=== PATIENT | female | born 1955 | race American Indian/Alaskan Native ===

== ENCOUNTER 2016-11-15 07:07 | Outpatient (CLI) | payer MEDICAID ==
--- NOTE | 2016-11-15 10:27 | Mammography Report ---
BILATERAL DIGITAL SCREENING MAMMOGRAM with CAD: 11/15/16 07:07:00 CLINICAL: Routine screening. COMPARISON:11/14/15 FINDINGS: The breasts are almost entirely fatty. No mass, architectural distortion or suspicious calcifications. IMPRESSION: No mammographic evidence of malignancy. BI-RADS CATEGORY: 1 - - Negative RECOMMENDATION: Routine mammographic screening in one year. COMMENT: Patient follow-up letters are generated by our [employer] application.
== END 2016-11-15 07:08 | disposition home or self-care (01) ==
LOC: MAMMO 07:07
PROVIDERS: ATTEND Internal Medicine
DX: Z12.31 Encounter for screening mammogram for malignant neoplasm of breast (principal)
CPT/HCPCS: 77067; G0202

== ENCOUNTER 2019-01-22 08:15 | Outpatient (CLI) | payer MEDICAID ==
--- NOTE | 2019-01-26 12:13 | Mammography Report ---
DIGITAL SCREENING MAMMOGRAM WITH CAD, 01/22/2019 INDICATION: Routine screening mammography. TECHNIQUE: Digital bilateral 2D mammography was obtained in the craniocaudal and mediolateral obliq ue projections. This examination was interpreted with the benefit of Computer-Aided Detection analysi s. COMPARISON: 11/15/2016 FINDINGS: Breast Density: There are scattered areas of fibroglandular density. A right outer focal asymmetry requires additional imaging. No architectural distortion or suspicious calcifications. There is no evidence of dominant mass, suspicious calcifications or architectural dis tortion in the left breast. IMPRESSION: A right outer parenchymal asymmetry requires additional imaging. Recommend recall for rig ht MLO and CC spot magnification views and right breast ultrasound if needed. Follow up recommendation: Special View: Mag Category 0: Incomplete. Needs additional imaging evaluation and/or prior mammograms for comparison. A "normal" or negative report should not discourage follow up or biopsy of a clinically significant f inding. A written summary of these findings will be mailed to the patient. The patient will be entered into a mammography reporting system which will generate a reminder letter for the patient's next appointmen t at the appropriate interval. The [employer] recommends yearly mammograms starting at age 40 and continuing as l mercy as a woman is in good health. Breast MRI is recommended for women with an approximate 20-25% or greater lifetime risk of breast cancer, including women with a strong family history of breast or ova ryanne cancer or who have been treated for Hodgkin's disease. Signer Name: Antonio Osorio MD Signed: 01/26/2019 12:08 PM Workstation Name: [id number]
== END 2019-01-22 08:16 | disposition home or self-care (01) ==
LOC: MAMMO 08:15
PROVIDERS: ATTEND Internal Medicine
DX: Z12.31 Encounter for screening mammogram for malignant neoplasm of breast (principal)
CPT/HCPCS: 77067

== ENCOUNTER 2019-02-05 08:19 | Outpatient (CLI) | payer MEDICAID ==
--- NOTE | 2019-02-05 09:55 | Ultrasound Report ---
RIGHT DIGITAL DIAGNOSTIC MAMMOGRAM -- 02/05/2019 RIGHT LIMITED BREAST ULTRASOUND INDICATION: Right breast spiculated nodule TECHNIQUE: Digital right mammographic imaging was performed. Spot compression views were obtained. L imited ultrasound was performed. COMPARISON: Screening mammogram dated 01/22/2019 FINDINGS: Breast Density: There are scattered areas of fibroglandular density. In the right breast, posterior depth 7-8:00 position, a 1.2 cm spiculated nodule persists on addition al imaging. Ultrasound Findings: Targeted sonographic evaluation was performed on the area of interest. In the le ft breast, 7:00 position 12 cm from nipple, an irregular shadowing mass with associated vascularity c orrelates with the spiculated nodule seen on mammography. It measures 1.3 cm. IMPRESSION: Spiculated mass right breast 7 8:00 position posterior depth, solid and vascular on ultra sound. BI-RADS Category 5: Highly Suggestive of Malignancy. Surgical consultation and biopsy is rec ommended. A "normal" or negative report should not discourage follow up or biopsy of a clinically significant f inding. A written summary of these findings will be mailed to the patient. The patient will be entered into a mammography reporting system which will generate a reminder letter for the patient's next appointmen t at the appropriate interval. According to the [employer], yearly mammograms are recommended starting at age 40 and continuing as long as a woman is in good health. Breast MRI is recommended for women with an marcel roximately 20-25% or greater lifetime risk of breast cancer, including women with a strong family his tory of breast or ovarian cancer and women who have been treated for Hodgkin's disease. Signer Name: Jessie Claudio MD Signed: 02/05/2019 9:51 AM Workstation Name: [employer]
== END 2019-02-05 08:20 | disposition home or self-care (01) ==
LOC: MAMMO 08:19
PROVIDERS: ATTEND Internal Medicine
DX: N63.13 Unspecified lump in the right breast, lower outer quadrant (principal)

== ENCOUNTER 2019-02-12 16:09 | Outpatient (CLI) | payer MEDICAID, OTHER | END 2019-02-12 16:10 | disposition home or self-care (01) | LOC: LABHHL 16:09 | PROVIDERS: ATTEND Surgery | DX: N63.11 Unspecified lump in the right breast, upper outer quadrant (principal) | CPT/HCPCS: 88305; 88341; 88342 ==

== ENCOUNTER 2019-02-25 09:05 | Outpatient (CLI) | payer MEDICAID ==
--- NOTE | 2019-03-01 12:02 | Magnetic Resonance Report ---
BILATERAL BREAST MR WITHOUT AND WITH GADOLINIUM INDICATION: Newly diagnosed right breast cancer. COMPARISONS: 02/05/2019 mammogram and ultrasound TECHNIQUE: Axial 1.0 mm T1 without, axial high-resolution 2.0 mm T2 and axial 1.0 mm dynamic vibrant high-resolution postcontrast T1 fat saturation sequences on a 1.5 Pao magnet. The examination was p erformed with an 8-channel dedicated Sentinelle breast coil. Post-processing with CAD and subtraction was performed on an [employer] workstation. 19.0 cc of MultiHance was injected without incident for the c ontrast portion of the exam. Consent was obtained prior to the administration of the contrast. FINDINGS: RIGHT BREAST: Moderate background parenchymal enhancement. The known cancer is an irregular enhancing mass in the lower outer quadrant 11 cm from the nipple measuring 2.6 x 1.7 x 1.4 cm. It demonstrates heterogeneous enhancement with mixed kinetics, 247% peak enhancement, 69% type I persistent, 30% typ e II plateau and 1% type III washout waveforms. No other mass or suspicious enhancement of the right breast. A 2.4 cm level I right axillary lymph no de with the maximum cortical thickness of 5 mm. No other suspicious lymph nodes. LEFT BREAST: Moderate background parenchymal enhancement. No mass or suspicious enhancement. A lymph node in the left axillary tail measures 3.9 x 0.8 cm. The cortex is irregular and measures 7 mm maxim um. IMPRESSION: 1. Known right breast cancer of the lower outer quadrant and no other suspicious lesion of the right breast. 2. A mildly suspicious right axillary lymph node with mild focal cortical thickening. 3. Negative left breast with a probably benign left axillary tail lymph node. BI-RADS Category 6: Known Cancer Signer Name: Antonio Osorio MD Signed: 03/01/2019 11:58 AM Workstation Name: [id number]
== END 2019-02-25 09:06 | disposition home or self-care (01) ==
LOC: SPVIMAG 09:05
PROVIDERS: ATTEND Surgery
DX: D05.11 Intraductal carcinoma in situ of right breast (principal)
CPT/HCPCS: A9577; C8908; 77049

== ENCOUNTER 2019-03-02 12:40 | Outpatient (CLI) | payer MEDICAID ==
--- NOTE | 2019-03-02 14:31 | Ultrasound Report ---
ULTRASOUND-GUIDED NEEDLE CORE BIOPSY RIGHT AXILLARY LYMPH NODE WITH CLIP PLACEMENT CLINICAL: Newly diagnosed right breast cancer and a suspicious lymph node on MRI. FINDINGS: The procedure was explained to the patient and informed consent was obtained. Ultrasound demonstrated the previously identified lymph node with focal cortical thickening. The lymp h node is actually in the axillary tail at the inferior aspect of the axilla. I marked the skin with a felt tip marker and a timeout was called. The skin was prepped with Chloro-P rep and anesthetized with 1% lidocaine. Needle core biopsy was performed through small dermatotomy using ultrasound guidance, 2% lidocaine wi th epinephrine for deep anesthesia and a 18-gauge Achieve biopsy device. 3 cores were obtained and pl aced in formalin. A localizer clip was deployed within the node. The patient tolerated the procedure well and there were no apparent complications. Hemostasis was ach ieved with minimal effort and a sterile dressing was applied. IMPRESSION: Uncomplicated ultrasound guided needle core biopsy with clip placement right axillary lym ph node . Signer Name: Antonio Osorio MD Signed: 03/02/2019 2:26 PM Workstation Name: [id number]
== END 2019-03-02 12:41 | disposition home or self-care (01) ==
LOC: SPVWC 12:40
PROVIDERS: ATTEND Surgery
DX: I89.8 Other specified noninfective disorders of lymphatic vessels and lymph nodes (principal); D05.11 Intraductal carcinoma in situ of right breast
CPT/HCPCS: 38505; 76942; 88305; 88342

== ENCOUNTER 2019-03-22 12:36 | Outpatient (CLI) | payer MEDICAID ==
--- NOTE | 2019-03-22 14:15 | Ultrasound Report ---
ULTRASOUND-GUIDED NEEDLE CORE BIOPSY LEFT AXILLARY LYMPH NODE WITH CLIP PLACEMENT CLINICAL: Right breast cancer and an abnormal left axillary lymph node by MRI. FINDINGS: The procedure was explained to the patient and informed consent was obtained. Ultrasound demonstrated the previously identified lymph node.. I marked the skin with a felt tip marker and a timeout was called. The skin was prepped with Chloro-P rep and anesthetized with 1% lidocaine. Needle core biopsy was performed through small dermatotomy using ultrasound guidance, 2% lidocaine wi th epinephrine for deep anesthesia and a 18-gauge Achieve biopsy device. 3 cores were obtained and pl aced in formalin. A clip was deployed within the lymph node. The patient tolerated the procedure well and there were no apparent complications. Hemostasis was ach ieved with minimal effort and a sterile dressing was applied. IMPRESSION: Uncomplicated ultrasound guided needle core biopsy with clip placement left axillary lymp h node. Signer Name: Antonio Osorio MD Signed: 03/22/2019 2:11 PM Workstation Name: [id number]
== END 2019-03-22 12:37 | disposition home or self-care (01) ==
LOC: SPVWC 12:36
PROVIDERS: ATTEND Surgery
DX: I89.8 Other specified noninfective disorders of lymphatic vessels and lymph nodes (principal); C50.911 Malignant neoplasm of unspecified site of right female breast
CPT/HCPCS: 38505; 76942; 88305

== ENCOUNTER 2019-08-20 11:44 | Outpatient (CLI) | payer MEDICAID | END 2019-08-20 11:45 | disposition home or self-care (01) | LOC: LABHHL 11:44 | PROVIDERS: ATTEND Surgery | DX: N60.09 Solitary cyst of unspecified breast (principal) | CPT/HCPCS: 88112 ==

== ENCOUNTER 2019-08-30 10:00 | Outpatient (CLI) | payer MEDICAID ==
[2019-08-30] MEDS ORDERED: LIDOCAINE (4%) 40 MG/ML TOPICAL SOLN 50 ML BOTTLE TP ONE (15:32)
[2019-08-30] MEDS ORDERED: SODIUM CHLORIDE IRRI 500 ML 500 ML IR ONE (15:58)
== END 2019-08-30 10:01 | disposition home or self-care (01) ==
LOC: WOUND 10:00
PROVIDERS: ATTEND Surgery
DX: S21.001A Unspecified open wound of right breast, initial encounter (principal); L98.492 Non-pressure chronic ulcer of skin of other sites with fat layer exposed; C50.911 Malignant neoplasm of unspecified site of right female breast; I10 Essential (primary) hypertension; M19.90 Unspecified osteoarthritis, unspecified site; Z90.710 Acquired absence of both cervix and uterus; Z90.49 Acquired absence of other specified parts of digestive tract; W88.8XXA Exposure to other ionizing radiation, initial encounter; Y93.89 Activity, other specified; Y92.89 Other specified places as the place of occurrence of the external cause; Y99.8 Other external cause status

== ENCOUNTER 2019-09-20 14:42 | Outpatient (CLI) | payer MEDICAID ==
[2019-09-20] MEDS ORDERED: LIDOCAINE (4%) 40 MG/ML TOPICAL SOLN 50 ML BOTTLE TP ONE (14:51)
== END 2019-09-20 14:43 | disposition home or self-care (01) ==
LOC: WOUND 14:42
PROVIDERS: ATTEND Surgery
DX: S21.001D Unspecified open wound of right breast, subsequent encounter (principal); L98.492 Non-pressure chronic ulcer of skin of other sites with fat layer exposed; C50.911 Malignant neoplasm of unspecified site of right female breast; I10 Essential (primary) hypertension; M19.90 Unspecified osteoarthritis, unspecified site; Z90.710 Acquired absence of both cervix and uterus; Z90.49 Acquired absence of other specified parts of digestive tract; W88.8XXD Exposure to other ionizing radiation, subsequent encounter

== ENCOUNTER 2019-11-01 12:56 | Outpatient (CLI) | payer MEDICAID ==
[2019-11-01] MEDS ORDERED: LIDOCAINE (4%) 40 MG/ML TOPICAL SOLN 50 ML BOTTLE TP ONE (13:01)
== END 2019-11-01 12:57 | disposition home or self-care (01) ==
LOC: WOUND 12:56
PROVIDERS: ATTEND Surgery
DX: L59.8 Other specified disorders of the skin and subcutaneous tissue related to radiation (principal); L98.492 Non-pressure chronic ulcer of skin of other sites with fat layer exposed; C50.911 Malignant neoplasm of unspecified site of right female breast; I10 Essential (primary) hypertension; M19.90 Unspecified osteoarthritis, unspecified site; Z90.710 Acquired absence of both cervix and uterus; Z90.49 Acquired absence of other specified parts of digestive tract; Y84.2 Radiological procedure and radiotherapy as the cause of abnormal reaction of the patient, or of later complication, without mention of misadventure at the time of the procedure

== ENCOUNTER 2019-11-23 14:19 | Outpatient (CLI) | payer MEDICAID ==
--- NOTE | 2019-11-23 15:12 | Mammography Report ---
BILATERAL DIAGNOSTIC MAMMOGRAM INDICATION: Status post right breast lumpectomy, patient due for annual bilateral mammogram.. COMPARISON: 04/09/2019, 02/12/2019, 02/05/2019, 01/22/2019, 11/15/2016. FINDINGS: Bilateral CC and MLO views were obtained. Breasts demonstrate scattered fibroglandular breast density. Area of distortion within the right lower outer posterior breast likely reflects site of interval lum pectomy. There is skin thickening and mild trabecular thickening within the right breast which is lik deborah posttreatment related. This exam will serve as a new baseline appearance of the right breast. No new or suspicious finding within either breast. No evidence of malignancy. IMPRESSION: No evidence of malignancy. A routine screening mammogram in one year is recommended. BI-RADS Category 2: Benign. Recommend routine screening mammography in one year A "normal" or negative report should not discourage follow up or biopsy of a clinically significant f inding. A written summary of these findings will be mailed to the patient. FURTHER INFORMATION: According to the [employer], yearly mammograms are recommend ed starting at age 40 and continuing as long as a woman is in good health. Breast MRI is recommended for women with an approximately 20-25% or greater lifetime risk of breast cancer, including women wi th a strong family history of breast or ovarian cancer and women who have been treated for Hodgkin's disease. Signer Name: Phuc Lopez MD Signed: 11/23/2019 3:08 PM Workstation Name: [id number]
== END 2019-11-23 14:20 | disposition home or self-care (01) ==
LOC: SPVWC 14:19
PROVIDERS: ATTEND Surgery
DX: C50.911 Malignant neoplasm of unspecified site of right female breast (principal)
CPT/HCPCS: 77066

== ENCOUNTER 2020-06-08 10:15 | Outpatient (CLI) | payer MEDICAID ==
--- NOTE | 2020-06-08 11:17 | Mammography Report ---
DIGITAL DIAGNOSTIC MAMMOGRAM WITH CAD , 06/08/2020 CLINICAL INFORMATION / INDICATION: The patient has a personal history of right breast cancer treated with lumpectomy and radiation. This is a short-term follow-up evaluation. The patient reports no new breast symptoms. TECHNIQUE: Digital right mammographic imaging was performed. This examination was interpreted with the benefit of Computer-aided Detection analysis. COMPARISON: 11/23/2019, 02/12/2019 FINDINGS: Breast Density: There are scattered areas of fibroglandular density. No dominant mass, suspicious calcifications or architectural distortion in the right breast. Stable postsurgical changes are noted in the right breast. IMPRESSION: No mammographic evidence of malignancy. Follow up recommendation: Routine yearly BI-RADS Category 2: Benign. A "normal" or negative report should not discourage follow up or biopsy of a clinically significant f inding. A written summary of these findings will be mailed to the patient. The patient will be entered into a mammography reporting system which will generate a reminder letter for the patient's next appointmen t at the appropriate interval. According to the [employer], yearly mammograms are recommended starting at age 40 and continuing as long as a woman is in good health. Breast MRI is recommended for women with an marcel roximately 20-25% or greater lifetime risk of breast cancer, including women with a strong family his tory of breast or ovarian cancer and women who have been treated for Hodgkin's disease. Signer Name: Keara Guillen MD Signed: 06/08/2020 11:12 AM Workstation Name: [id number]
== END 2020-06-08 10:16 | disposition home or self-care (01) ==
LOC: SPVWC 10:15
PROVIDERS: ATTEND Surgery
DX: R92.8 Other abnormal and inconclusive findings on diagnostic imaging of breast (principal); Z85.3 Personal history of malignant neoplasm of breast

== ENCOUNTER 2020-06-15 08:55 | Outpatient (CLI) | payer MEDICAID ==
--- NOTE | 2020-06-15 14:33 | Fluoroscopy Report ---
UPPER GI HISTORY: GASTROESOPHAGEAL REFLUX DISEASE. TECHNIQUE: Single and double contrast barium technique utilized to evaluate the esophagus, stomach, and duodenal C-loop. FINDINGS: To begin the exam, swallowing was evaluated in the lateral position under direct fluorosco py. Swallowing was normal. The esophagus is normal caliber and mucosal pattern throughout. Normal motility. A small to medium hi atal hernia was seen throughout this exam with occasional episodes of reflux to the proximal esophagu s. The gastric cavity, duodenal bulb and duodenal sweep are unremarkable. IMPRESSION: Small to medium hiatal hernia with evidence for gastroesophageal reflux. Fluoroscopic time: 1.6 minutes Number of fluoroscopic images: 21 Signer Name: Jann Friend Jr, MD Signed: 06/15/2020 2:28 PM Workstation Name: [id number]
== END 2020-06-15 08:56 | disposition home or self-care (01) ==
LOC: FLUORO 08:55
PROVIDERS: ATTEND Surgery
DX: K21.9 Gastro-esophageal reflux disease without esophagitis (principal); K44.9 Diaphragmatic hernia without obstruction or gangrene
CPT/HCPCS: 74246

== ENCOUNTER 2020-06-22 12:39 | Outpatient (CLI) | payer MEDICAID | END 2020-06-22 12:40 | disposition home or self-care (01) | LOC: SLR 12:39 | PROVIDERS: ATTEND Surgery | DX: G47.30 Sleep apnea, unspecified (principal) | CPT/HCPCS: 95810 ==

== ENCOUNTER 2020-07-31 11:00 | Outpatient (CLI) | payer MEDICAID | END 2020-07-31 11:01 | disposition home or self-care (01) | LOC: SLR 11:00 | PROVIDERS: ATTEND Surgery | DX: G47.33 Obstructive sleep apnea (adult) (pediatric) (principal); R40.0 Somnolence; E66.9 Obesity, unspecified | CPT/HCPCS: 95811 ==

== ENCOUNTER 2020-10-04 09:10 | Outpatient (CLI) | payer MEDICAID | END 2020-10-04 09:11 | disposition home or self-care (01) | LOC: PF 09:10 | PROVIDERS: ATTEND Surgery | DX: Z01.818 Encounter for other preprocedural examination (principal); E66.01 Morbid (severe) obesity due to excess calories | CPT/HCPCS: 94010 ==

== ENCOUNTER 2020-10-26 06:03 | Inpatient (IN) | payer MEDICAID ==
[2020-10-23 11:27] LABS: Hematocrit 38.1 % (30.3-42.9); Hemoglobin 12.7 gm/dl (10.1-14.3); Mean Corpuscular HGB Conc 33 % (30-34); Mean Corpuscular Volume 86 fl (79-97); Platelet Count 188 K/mm3 (140-440); Red Blood Count 4.42 M/mm3 (3.65-5.03); Red Cell Distribution Width 13.7 % (13.2-15.2)
[2020-10-23 11:41] LABS: BUN/Creatinine Ratio 18; Blood Urea Nitrogen 16 mg/dL (7-17); Calcium 9.3 mg/dL (8.4-10.2); Hemolysis Index 0
--- NOTE | 2020-10-24 11:56 | Anesthesia Consultation ---
Anesthesia Consult and Med Hx Date of service: 10/26/20 - Airway Anesthetic Teeth Evaluation: Good (Missing) ROM Head & Neck: Adequate Mental/Hyoid Distance: Adequate Mallampati Class: Class II Intubation Access Assessment: Good - Pre-Operative Health Status ASA Pre-Surgery Classification: ASA3 Proposed Anesthetic Plan: Spinal (GA if needed) - Pre-Anesthesia Comment Pre-Anesthesia Comments: Prolonged sedation after breast surgery and needed CPAP in PACU - Pulmonary Hx Smoking: No Hx Asthma: No Hx Sleep Apnea: Yes (DX SLEEP APNEA WITH CPAP USE) - Cardiovascular System Hx Hypertension: Yes (X 42 YRS) - Central Nervous System Hx Seizures: No Hx Back Pain: No (Arthritis) Hx Psychiatric Problems: No - Gastrointestinal Hx Gastroesophageal Reflux Disease: Yes - Endocrine Hx Thyroid Disease: No - Hematic Hx Anemia: No - Other Systems Hx Cancer: Yes (Right breast) Hx Obesity: Yes - Additional Comments Anesthesia Medical History Comments: Pt is seeing Dr. Day for bariatric surgery. PFTs ok and pt reports negative NST
[~2020-10-26 06:03] MED LIST: ACETAMINOPHEN 500 MG TAB PO NR; CELECOXIB 200 MG CAP PO NR; GABAPENTIN 300 MG CAP PO NR; LACTATED RINGERS 1,000 ML IV SCH; MAGNESIUM OXIDE 400 MG TAB PO NR; MIDAZOLAM 2 MG/2 ML INJ IV NR; ceFAZolin/STERILE WATER 2 GM/20 ML SYRINGE IV NR
--- NOTE | 2020-10-26 06:46 | Anesthesia Day of Surgery ---
Anesthesia Day of Surgery - Day of Surgery Patient Examined: Yes Patient H&P Reviewed: Yes Patient is NPO: Yes Beta Blockers: Yes
[2020-10-26] MEDS ORDERED: HYDROmorphone 1 MG/1 ML INJ IV PRN ×2 (07:15)
[2020-10-26] MEDS ORDERED: ONDANSETRON 4 MG/2 ML INJ IV PRN ×3 (07:15→11:42)
[2020-10-26] MEDS ORDERED: CITRIC ACID-SOD CITRATE 500 ML IV ONE (07:57)
[2020-10-26] MEDS ORDERED: NEOMY 40 MG/POLYMYXIN B 200,000 UNITS/ML (GU) AMPULE IR ONE ×2 (07:58→09:36)
[2020-10-26] MEDS ORDERED: propofoL 200 MG/20 ML VIAL IV ONE ×3 (07:59→09:35)
[2020-10-26] MEDS ORDERED: LIDOCAINE MPF (2%) 20 MG/1 ML VIAL 5 ML ONE (08:01)
[2020-10-26] MEDS ORDERED: KETAMINE/STERILE WATER 50 MG/ML SYRINGE ONE (08:50)
[2020-10-26] MEDS ORDERED: MIDAZOLAM 2 MG/2 ML INJ ONE (08:51)
[2020-10-26] MEDS ORDERED: SODIUM CHLORIDE P/F VIAL 10 ML 10 ML ONE (08:59)
[2020-10-26] MEDS ORDERED: TRANEXAMIC ACID 1,000 MG/10 ML ONE (09:12)
[2020-10-26] MEDS ORDERED: SODIUM CHLORIDE 0.9% 100 ML ONE ×2 (09:13)
[2020-10-26] MEDS ORDERED: KETOROLAC 30 MG/1 ML INJ ONE (09:21)
[2020-10-26] MEDS ORDERED: MORPHINE 10 MG/1 ML INJ ONE (09:21)
[2020-10-26] MEDS ORDERED: BUPIVACAINE/PF (0.5%) 5 MG/1 ML 10 ML VIAL INFILTRATI ONE ×2 (09:21→09:32)
[2020-10-26] MEDS ORDERED: SODIUM CHLORIDE 0.9% 50 ML ONE (09:22)
[2020-10-26] MEDS ORDERED: TRANEXAMIC ACID 1,000 MG/10 ML IV ONE (09:31)
[2020-10-26] MEDS ORDERED: KETOROLAC 30 MG/1 ML INJ IV ONE (09:32)
[2020-10-26] MEDS ORDERED: MORPHINE 10 MG/1 ML INJ IM ONE (09:33)
[2020-10-26] MEDS ORDERED: SODIUM CHLORIDE 0.9% 50 ML IVPB IV ONE (09:33)
[2020-10-26] MEDS ORDERED: WATER FOR IRRIG STERILE 1,500 ML BOTTLE IR ONE (09:34)
[2020-10-26] MEDS ORDERED: SODIUM CHLORIDE 0.9% 100 ML IVPB IV ONE (09:34)
[2020-10-26] MEDS ORDERED: SODIUM CHLORIDE 0.9% IRR 1,500 ML BOTTLE IR ONE (09:34)
[2020-10-26] MEDS ORDERED: SODIUM CHLORIDE 0.9% IRRIG SOLN 2000 ML IR ONE (09:36)
--- NOTE | 2020-10-26 10:38 | Procedure Note ---
Date of procedure: 10/26/20 Pre-op diagnosis: Severe arthritis right hip Post-op diagnosis: same Procedure: Right total hip replacement Procedure The patient was brought to the OR and placed in the OR table in the supine position following induction intubation by anesthesia the patient's was turned into the left lateral decubitus position care was taken to protect the bony areas and a axillary roll was used and the left axilla. Right hip and thigh were then prepped and draped in the usual sterile manner. A timeout procedure was done to identify the patient and the correct operative site. Using the lateral approach incision was taken down through skin and subcutaneous the f ascia ruiz was incised A Charnley retractor was placed deep within the wound care was taken to enter the anterior hip capsule by the vastus lateralis and the gluteus medius tendons in the knee was flexed and internally rotated which brought us upon the anterior portion of the hip joint using a small broach and osteotomy was performed on the femoral neck approximately 2 cm to centimeters proximal to the lesser trochanter. Using Haley retractors the the acetabular structures were evaluated the patient was noted to have some moderate changes within the acetabulum reaming was begun starting with a 45 mm diameter and advancing up to a 52 mm cup was taken to the observed bleeding bone within the acetabulum nicely 56 mm cup was inserted care was taken to maintain the proper version that being 45 abduction and 20 of anteversion and a small screw was used to stabilize this acetabular component next attention was turned to the proximal femur using a FlowCardiaie cutter and the proximal femoral canal was entered this was then reamed and broached to a #5 stem And the hip joint was then reduced using a 30 neutral neck and a 36 mm head hip was reduced taken through a range of motion and was found to be stable Trial component was removed and the hip joint was then copiously irrigated the final components were inserted that being a #5 femoral stem with a 32 mm head again the hip joint was reduced and was taken through a range of motion and found stable. He was closed in a standard routine fashion. Dressings were applied the patient tolerated the procedure and there were no complications he was taken to postanesthesia recovery stable Anesthesia: GETA Surgeon: EDU MENDOZA (Lisa Maldonado, 1st assist) Estimated blood loss: other (300 cc) Pathology: list (Portions of the right femoral head and neck) Specimen disposition: to lab Condition: stable Disposition: PACU
[2020-10-26] MEDS ORDERED: ONDANSETRON 4 MG/2 ML INJ ONE (10:41)
[2020-10-26] MEDS ORDERED: ePHEDrine SULFATE 50 MG/1 ML INJ ONE (10:52)
[2020-10-26] MEDS ORDERED: MORPHINE 2 MG/1 ML INJ IV PRN ×2 (11:00→11:42)
[2020-10-26] MEDS ORDERED: KETOROLAC 30 MG/1 ML INJ IV PRN (11:00)
[2020-10-26] MEDS ORDERED: MORPHINE 4 MG/1 ML INJ IV PRN (11:42)
--- NOTE | 2020-10-26 12:43 | XRay Report ---
RIGHT HIP 1 VIEW INDICATION / CLINICAL INFORMATION: Postop. COMPARISON: None available. FINDINGS: There is a right hip prosthesis with mild postsurgical gas in the soft tissues. There is no evidence of fracture or subluxation. No complication of surgery is seen. Signer Name: Aamir Tobar MD Signed: 10/26/2020 12:38 PM Workstation Name: [id number]
[2020-10-26] MEDS ORDERED: ACETAMINOPHEN 325 MG TAB PO PRN (14:00)
--- NOTE | 2020-10-26 15:58 | Post Anesthesia Evaluation ---
- Post Anesthesia Evaluation Patient Participated: Yes Airway Patent: Yes Stable Respiratory Function: Yes Nausea/Vomiting: No Temp > 96.8F: Yes Pain Manageable: Yes Adequeate Hydration: Yes Anesthesia Complications: No Block Receding Appropriately: Not Applicable Patient on Ventilator: No
[2020-10-26] MEDS: ENOXAPARIN 40 MG/0.4 ML INJ SUB-Q SCH (18:37)
[2020-10-26] MEDS: MORPHINE 4 MG/1 ML INJ IV PRN (21:08)
[2020-10-27 07:38] LABS: Hematocrit 30.3 % (30.3-42.9); Hemoglobin 10.1 gm/dl (10.1-14.3)
[2020-10-27] MEDS: MORPHINE 4 MG/1 ML INJ IV PRN ×2 (09:10→22:50)
[2020-10-27] MEDS: ENOXAPARIN 40 MG/0.4 ML INJ SUB-Q SCH (09:14)
--- NOTE | 2020-10-27 15:54 | Progress Note ---
Assessment and Plan Status post right total hip replacement postop day 1 doing well continue physical therapy and rehab Subjective Date of service: 10/27/20 Interval history: Complains of some incisional pain otherwise okay Objective Vital signs: Vital Signs - 12hr 10/27/20 10/27/20 10/27/20 04:04 06:59 11:32 Temperature 98.4 F 98.2 F 97.5 F L Pulse Rate 76 68 67 Respiratory 16 22 20 Rate Blood Pressure 120/66 114/68 Blood Pressure 125/59 [Right] O2 Sat by Pulse 95 94 96 Oximetry 10/27/20 10/27/20 12:24 15:23 Temperature 98.1 F Pulse Rate 80 Respiratory 16 Rate Blood Pressure Blood Pressure 125/66 [Right] O2 Sat by Pulse 95 99 Oximetry Incision: clean and dry Weight bearing status: as tolerated - Labs CBC & BMP: 10/27/20 07:14 10/23/20 11:00
[2020-10-28] MEDS: MORPHINE 4 MG/1 ML INJ IV PRN ×2 (05:30→10:32)
[2020-10-28] MEDS: ENOXAPARIN 40 MG/0.4 ML INJ SUB-Q SCH (10:32)
[2020-10-28] MEDS: HYDROcodone/ACETAMINOPHEN 7.5-325MG TAB PO PRN (20:26)
[2020-10-29] MEDS: MORPHINE 4 MG/1 ML INJ IV PRN ×2 (05:55→09:46)
[2020-10-29] MEDS: ENOXAPARIN 40 MG/0.4 ML INJ SUB-Q SCH (09:45)
[2020-10-29] MEDS: HYDROcodone/ACETAMINOPHEN 7.5-325MG TAB PO PRN ×2 (13:32→18:35)
[2020-10-30] MEDS: HYDROcodone/ACETAMINOPHEN 7.5-325MG TAB PO PRN ×3 (00:25→12:06)
[2020-10-30] MEDS: ENOXAPARIN 40 MG/0.4 ML INJ SUB-Q SCH (09:41)
[2020-10-30 12:02] VITALS: BP 120/37
--- NOTE | 2020-10-30 13:37 | Discharge Summary ---
Providers - Providers Date of Admission: 10/26/20 06:03 Date of discharge: 10/30/20 Attending physician: EDU MENDOZA MD 10/26/20 10:33 Physical Therapy Evaluation and Treat [CONS] Routine Comment: Reason For Exam: gait training Weight bearing status?: Full wt bearing Assistive devices?: Yes If so list: Walker Primary care physician: NATHAN ROMO Hospitalization Condition: Stable Hospital course: 64-year-old female with a long history of right hip pain and stiffness for many years duration tried conservative management however recently pain symptoms persist plain x-rays taken preoperatively show severe osteoarthritis patient was admitted to the hospital and was taken to the OR where a right total hip repla cement was performed postoperatively she was seen and evaluated by physical therapy where she was given instructions on gait weightbearing and range of motion exercises. Case management services were also consulted for home health and physical therapy Disposition: DC/TX- HOME UNDER HOME [facility] Final Discharge Diagnosis (Prints w/discharge instructions): Severe arthritis right hip Core Measure Documentation - Palliative Care Palliative Care/ Comfort Measures: Not Applicable - Core Measures Any of the following diagnoses?: none - VTE Discharge Requirements Deep Vein Thrombosis/Pulmonary Embolism Present on Admission: No Has pt received <5 days of overlap therapy or INR<2.0: Yes Anticoagulant overlap therapy prescribed at discharge: Yes Contraindication No Overlap Therapy order at DC: Medical Contraindication - Acute [place] Discharge Requirements Aspirin at discharge: No Reason for no aspirin on DC: Medical contraindication - Heart Failure Discharge Requirements VANESSA/ARB for LVSD if EF <40%: Not Applicable - Stroke Discharge Requirements Statin for LDL = or >70 mg/dl on DC: Not Applicable Exam - Constitutional Vitals: Temp Pulse Resp BP Pulse Ox 98.7 F 85 18 120/37 96 10/30/20 11:35 10/30/20 07:49 10/30/20 11:35 10/30/20 11:35 10/30/20 07:49 Plan Activity: advance as tolerated Weight Bearing Status: Weight Bear as Tolerated Diet: low fat, low carbohydrate Wound: keep clean and dry Special Instructions: physical therapy Durable Medical Equipment Needed Upon Discharge: Walker-Standard, Bedside commode -elevated Follow up with: NATHAN ROMO MD [Primary Care Provider] - 7 Days Prescriptions: Apixaban [Eliquis] 5 mg PO DAILY #30 tablet Oxycodone HCl/Acetaminophen [Percocet 10/325 mg] 1 each PO Q6HR PRN #30 tablet PRN Reason: Pain
== END 2020-10-30 16:36 | disposition home health service (06) | DRG 470 ==
LOC: 3A 06:03 → 3B-SURG 16:43
PROVIDERS: ADMIT Orthopaedic Surgery; ATTEND Orthopaedic Surgery
PROC: 0SR90JZ Replacement of Right Hip Joint with Synthetic Substitute, Open Approach (ICD-10-PCS; principal; 2020-10-26)
DX: M16.11 Unilateral primary osteoarthritis, right hip (principal); I10 Essential (primary) hypertension; K21.9 Gastro-esophageal reflux disease without esophagitis; Z20.822 Contact with and (suspected) exposure to COVID-19; Z85.3 Personal history of malignant neoplasm of breast; Z90.710 Acquired absence of both cervix and uterus; Z90.11 Acquired absence of right breast and nipple
CPT/HCPCS: 36415; 80048; 85014; 85018; 85027; 86850; 86900; 86901; 88304; 88305; 88311; G0378; A4217; C1776; J1170; J1650; J1885; J2250; J2270; J2405; J2704; J3490; J7120; U0003

== ENCOUNTER 2020-11-23 10:28 | Outpatient (CLI) | payer MEDICAID ==
--- NOTE | 2020-11-23 18:00 | Mammography Report ---
DIGITAL SCREENING MAMMOGRAM WITH CAD, 11/23/2020 CLINICAL INFORMATION / INDICATION: Routine screening mammography. TECHNIQUE: Digital bilateral 2D mammography was obtained in the craniocaudal and mediolateral obliqu e projections. This examination was interpreted with the benefit of Computer-Aided Detection analysis . COMPARISON: 01/22/2019, 11/23/2019 FINDINGS: Breast Density: There are scattered areas of fibroglandular density. No dominant mass, suspicious calcifications, or architectural distortion in either breast. Postlumpectomy and radiation changes again noted in the right breast lower outer quadrant. Overall, n o interval change from the 11/23/2019 mammogram. IMPRESSION: No mammographic evidence of malignancy. Follow up recommendation: Routine yearly BI-RADS Category 2: Benign. A "normal" or negative report should not discourage follow up or biopsy of a clinically significant f inding. A written summary of these findings will be mailed to the patient. The patient will be entered into a mammography reporting system which will generate a reminder letter for the patient's next appointmen t at the appropriate interval. The [employer] recommends yearly mammograms starting at age 40 and continuing as l mercy as a woman is in good health. Breast MRI is recommended for women with an approximate 20-25% or greater lifetime risk of breast cancer, including women with a strong family history of breast or ova ryanne cancer or who have been treated for Hodgkin's disease. Signer Name: Jaz Austin MD Signed: 11/23/2020 5:56 PM Workstation Name: [id number]
== END 2020-11-23 10:29 | disposition home or self-care (01) ==
LOC: SPVWC 10:28
PROVIDERS: ATTEND Surgery
DX: Z12.31 Encounter for screening mammogram for malignant neoplasm of breast (principal); N64.89 Other specified disorders of breast
CPT/HCPCS: 77067

== ENCOUNTER 2021-01-19 08:13 | Outpatient (CLI) | payer MEDICAID ==
--- NOTE | 2021-01-19 09:35 | XRay Report ---
Right hip-3 views INDICATION: PAIN IN RIGHT HIP. COMPARISON: None. IMPRESSION: Intact right hip arthroplasty without complication. Mild DJD in the left hip with modera tely advanced changes in the cervical spine. Nothing acute. Soft tissues are normal. Normal alignme nt. Signer Name: Rubin Lema MD Signed: 01/19/2021 9:31 AM Workstation Name: [id number]
== END 2021-01-19 08:14 | disposition home or self-care (01) ==
LOC: XRAY 08:13
PROVIDERS: ATTEND Orthopaedic Surgery
DX: M16.11 Unilateral primary osteoarthritis, right hip (principal); Z96.641 Presence of right artificial hip joint

== ENCOUNTER 2021-07-31 07:26 | Day surgery (SDC) | payer MEDICAID ==
[~2021-07-31 07:26] MED LIST changes: -ACETAMINOPHEN 500 MG TAB PO NR; -CELECOXIB 200 MG CAP PO NR; -GABAPENTIN 300 MG CAP PO NR; -LACTATED RINGERS 1,000 ML IV SCH; -MAGNESIUM OXIDE 400 MG TAB PO NR; -MIDAZOLAM 2 MG/2 ML INJ IV NR; +SODIUM CHLORIDE 0.9% 1000 ML 1,000 ML IV SCH; -ceFAZolin/STERILE WATER 2 GM/20 ML SYRINGE IV NR
--- NOTE | 2021-07-31 09:35 | Anesthesia Day of Surgery ---
Anesthesia Day of Surgery - Day of Surgery Patient Examined: Yes Patient H&P Reviewed: Yes Patient is NPO: Yes
--- NOTE | 2021-07-31 09:36 | Anesthesia Consultation ---
Anesthesia Consult and Med Hx Date of service: 07/31/21 - Airway Anesthetic Teeth Evaluation: Good ROM Head & Neck: Adequate Mental/Hyoid Distance: Adequate Mallampati Class: Class II Intubation Access Assessment: Probably Good - Pre-Operative Health Status ASA Pre-Surgery Classification: ASA3 Proposed Anesthetic Plan: MAC - Pulmonary Hx Smoking: No Hx Asthma: No Hx Sleep Apnea: Yes - Cardiovascular System Hx Hypertension: Yes - Central Nervous System Hx Seizures: No Hx Back Pain: No (Arthritis) Hx Psychiatric Problems: No - Gastrointestinal Hx Gastroesophageal Reflux Disease: Yes - Endocrine Hx Thyroid Disease: No - Hematic Hx Anemia: No Hx Sickle Cell Disease: No - Other Systems Hx Cancer: Yes Hx Obesity: Yes
--- NOTE | 2021-07-31 09:50 | Discharge Summary ---
Providers - Providers Date of Admission: 07/31/2021 Date of discharge: 07/31/21 Attending physician: JUSTIN LUO MD Primary care physician: NATHAN ROMO Hospitalization Reason for admission: pre-op egd Condition: Good Procedures: egd with bx Hospital course: Pt presented for a pre-op EGD as part of planning for up coming bariatric surgery. Procedure was uneventful and pt recovered well and was discharged to home. Disposition: 01 HOME / SELF CARE / HOMELESS Final Discharge Diagnosis (Prints w/discharge instructions): morbid obesity, gerd Core Measure Documentation - Palliative Care Palliative Care/ Comfort Measures: Not Applicable - Core Measures Any of the following diagnoses?: none Exam - Physical Exam Narrative exam: unchanged from pre-op Plan Activity: advance as tolerated Diet: low carbohydrate Follow up with: NATHAN ROMO MD [Primary Care Provider] - 7 Days
--- NOTE | 2021-07-31 09:51 | Operative Report ---
Operative Report Operative Report: DATE: 07/31/2021 SURGERY: Upper endoscopy. SURGEON: Lorri Day M.D. PROCEDURE: EGD with biopsy PRE OP DX: morbid obesity, GERD POST OP DX: morbid obesity, GERD TYPE OF ANESTHESIA: MAC. ESTIMATED BLOOD LOSS: None. COMPLICATIONS: None. SPECIMENS REMOVED: antral biopsy FINDINGS: 1. large hiatal hernia. 2. Otherwise, normal esophagus, stomach and first portion of duodenum. INDICATIONS:INDICATION FOR PROCEDURE: Patient is a 65-year-old female with a long history of morbid obesity and GERD. She is planned to have a weight loss procedure and is here for preoperative planning EGD. PROCEDURE DETAILS: After consent was reviewed, patient was taken back to the operating room where patient was placed in the left lateral decubitus position and a bite block was placed in the mouth. After a time-out was called, MAC anesthesia was initiated. I then passed the endoscope into her oropharynx, into her esophagus, visualized the entire esophagus, which was all within normal limits. Z-line was noted to about 37cm from incisors. I then visualized the stomach and the first portion of the duodenum and there were no abnormalities I could clearly visualize except for antral gastritis. A cold forceps biopsy of the antrum was taken and will be sent to pathology to evaluate for H.pylori. I then retroflexed the scope in the stomach and visualized the hiatus and I could see a large more than 2cm hiatal hernia. I then desufflated the stomach and removed the endoscope. Patient tolerated procedure well and was transferred to recovery room in good and stable condition.
[2021-07-31] MEDS ORDERED: propofoL 200 MG/20 ML VIAL IV ONE (11:30)
[2021-07-31 12:16] VITALS: BP 139/82
== END 2021-07-31 12:30 | disposition home or self-care (01) ==
LOC: GIO 07:26
PROVIDERS: ATTEND Surgery
DX: K21.9 Gastro-esophageal reflux disease without esophagitis (principal); E66.01 Morbid (severe) obesity due to excess calories; I10 Essential (primary) hypertension; K44.9 Diaphragmatic hernia without obstruction or gangrene; K29.70 Gastritis, unspecified, without bleeding; G47.30 Sleep apnea, unspecified; M19.90 Unspecified osteoarthritis, unspecified site; Z90.49 Acquired absence of other specified parts of digestive tract; Z79.899 Other long term (current) drug therapy; Z85.3 Personal history of malignant neoplasm of breast; Z90.11 Acquired absence of right breast and nipple; Z90.710 Acquired absence of both cervix and uterus; Z98.890 Other specified postprocedural states
CPT/HCPCS: 43239; 88305; 88342; J2704; J7030

== ENCOUNTER 2021-12-03 05:58 | Inpatient (IN) | payer MEDICAID ==
[2021-11-28 12:00] LABS: Hematocrit 36.4 % (30.3-42.9); Mean Corpuscular HGB Conc 33 % (30-34); Mean Corpuscular Volume 86 fl (79-97); Platelet Count 261 K/mm3 (140-440); Red Blood Count 4.25 M/mm3 (3.65-5.03); Red Cell Distribution Width 14.4 % (13.2-15.2)
[2021-11-28 12:24] LABS: Alanine Aminotransferase 11 units/L (7-56); Albumin 3.9 g/dL (3.9-5); BUN/Creatinine Ratio 39; Blood Urea Nitrogen 43 mg/dL (7-17); Calcium 9.7 mg/dL (8.4-10.2); Hemolysis Index 0
--- NOTE | 2021-11-28 13:16 | Anesthesia Consultation ---
Anesthesia Consult and Med Hx Date of service: 12/03/21 - Airway Anesthetic Teeth Evaluation: Good ROM Head & Neck: Adequate Mental/Hyoid Distance: Adequate Mallampati Class: Class III Intubation Access Assessment: Possibly Difficult - Pulmonary Exam CTA: Yes - Cardiac Exam Cardiac Exam: RRR - Pre-Operative Health Status ASA Pre-Surgery Classification: ASA3 Proposed Anesthetic Plan: General - Pulmonary Hx Smoking: No Hx Respiratory Symptoms: No (nml PFTs 2020) Hx Sleep Apnea: Yes (severe KADEN per sleep study; compliant with CPAP) - Cardiovascular System Hx Hypertension: Yes Hx Heart Attack/AMI: No - Central Nervous System CVA: No - Gastrointestinal Hx Gastroesophageal Reflux Disease: Yes (w/ small to medium hiatal hernia) - Endocrine Hx Renal Disease: No Hx Liver Disease: No Hx Insulin Dependent Diabetes: No Hx Non-Insulin Dependent Diabetes: No Hx Thyroid Disease: No - Other Systems Hx Cancer: Yes (hx R breast ca s/p lumpectomy, XRT; lymph nodes intact) Hx Obesity: Yes (BMI 48) - Additional Comments Anesthesia Medical History Comments: No hx anesthetic complications. Myocardiac perfusion study 07/2020 showed small reversible defect and normal EF. Patient had preop cardiac eval this month which notes that given patient's functional capacity, no additional intervention recommended prior to surgery.
[~2021-12-03 05:58] MED LIST changes: +SCOPOLAMINE TRANSDERMAL PATCH 72 HR TD SCH; -SODIUM CHLORIDE 0.9% 1000 ML 1,000 ML IV SCH
[2021-12-03] MEDS ORDERED: SCOPOLAMINE TRANSDERMAL PATCH 72 HR TD NR (06:00)
[2021-12-03] MEDS ORDERED: ENOXAPARIN 40 MG/0.4 ML INJ SUB-Q NR (06:00)
[2021-12-03] MEDS ORDERED: ACETAMINOPHEN IV 1,000 MG/100 ML BOTTLE IV NR (06:00)
[2021-12-03] MEDS ORDERED: metroNIDAZOLE/NS 500 MG/100 ML 500 MG/100 ML BAG IV NR (06:00)
[2021-12-03] MEDS ORDERED: methOCARBAMOL 1,000 MG in SODIUM CHLORIDE 0.9% 250ML 250 ML IV SCH (06:00)
[2021-12-03] MEDS ORDERED: GABAPENTIN 500 MG/10 ML ORAL LIQD PO NR (06:00)
[2021-12-03] MEDS ORDERED: MIDAZOLAM 2 MG/2 ML INJ IV NR (06:00)
[2021-12-03] MEDS ORDERED: LACTATED RINGERS 1,000 ML IV SCH (06:00)
[2021-12-03] MEDS ORDERED: BACTERIOSTATIC SODIUM CHLORIDE 0.9% 30 ML VIAL INFILTRATI ONE (06:16)
[2021-12-03] MEDS ORDERED: LIDOCAINE 2%/EPINEPHRINE 1:100,000 VIAL (20 ML) INFILTRATI ONE ×2 (07:16→09:20)
[2021-12-03] MEDS ORDERED: BUPIVACAINE/PF (0.25%) 2.5 MG/ML 30 ML VIAL INFILTRATI ONE ×2 (07:16→09:19)
[2021-12-03] MEDS ORDERED: SUGAMMADEX SODIUM 200 MG/2 ML VIAL IV ONE (07:24)
[2021-12-03] MEDS ORDERED: MAGNESIUM SULFATE 4 GM/100 ML BAG IV ONE (07:24)
[2021-12-03] MEDS ORDERED: WATER FOR IRRIG STERILE 250 ML BOTTLE IR ONE (07:34)
[2021-12-03] MEDS ORDERED: LIDOCAINE MPF (2%) 20 MG/1 ML VIAL 5 ML ONE (07:37)
[2021-12-03] MEDS ORDERED: KETAMINE/STERILE WATER 50 MG/ML SYRINGE ONE (07:37)
[2021-12-03] MEDS ORDERED: fentaNYL 100 MCG/2 ML INJ ONE (07:37)
[2021-12-03] MEDS ORDERED: dexAMETHasone 20 MG/5 ML VIAL ONE (07:37)
[2021-12-03] MEDS ORDERED: SODIUM CHLORIDE P/F VIAL 10 ML 10 ML ONE (07:44)
[2021-12-03] MEDS ORDERED: ROCURONIUM 50 MG/5 ML INJ IV ONE ×3 (07:52→11:16)
[2021-12-03] MEDS ORDERED: MIDAZOLAM 2 MG/2 ML INJ ONE (07:54)
[2021-12-03] MEDS ORDERED: KETOROLAC 30 MG/1 ML INJ ONE (07:56)
[2021-12-03] MEDS ORDERED: ONDANSETRON 4 MG/2 ML INJ ONE (07:56)
--- NOTE | 2021-12-03 08:03 | Anesthesia Day of Surgery ---
Anesthesia Day of Surgery - Day of Surgery Patient Examined: Yes Patient H&P Reviewed: Yes Patient is NPO: Yes
[2021-12-03] MEDS ORDERED: SODIUM CHLORIDE 0.9% IRRIG SOLN 2000 ML IR ONE (09:19)
[2021-12-03] MEDS ORDERED: SODIUM CHLORIDE 0.9% IRR 1,500 ML BOTTLE IR ONE (09:19)
[2021-12-03] MEDS ORDERED: ePHEDrine SULFATE 50 MG/1 ML INJ ONE (09:26)
[2021-12-03] MEDS ORDERED: LACTATED RINGERS 1,000 ML ONE (09:37)
[2021-12-03] MEDS ORDERED: propofoL 200 MG/20 ML VIAL IV ONE ×4 (11:00→11:37)
[2021-12-03] MEDS ORDERED: HYDROcodone/Acetaminophen 7.5-325MG-15ML ORAL LIQD PO PRN (13:04)
[2021-12-03] MEDS ORDERED: SIMETHICONE 80 MG CHEW TAB PO PRN (13:04)
[2021-12-03] MEDS ORDERED: HYDROmorphone 0.5 MG/0.5 ML INJ IV PRN ×2 (13:04)
[2021-12-03] MEDS ORDERED: METOCLOPRAMIDE 10 MG/2 ML INJ IV PRN (13:04)
[2021-12-03] MEDS ORDERED: hydrALAZINE 20 MG/1 ML INJ IV PRN (13:04)
[2021-12-03] MEDS ORDERED: ONDANSETRON 4 MG/2 ML INJ IV PRN (13:04)
[2021-12-03] MEDS: ACETAMINOPHEN IV 1,000 MG/100 ML BOTTLE IV SCH ×2 (13:43→21:34)
--- NOTE | 2021-12-03 13:47 | Operative Report ---
Operative Report Operative Report: DATE OF PROCEDURE: 12/03/21 SURGEON: Lorri Day MD RESIN MIXER: Solomon Graham CSA MD PREOPERATIVE DIAGNOSIS: Morbid obesity. POSTOPERATIVE DIAGNOSES: Morbid obesity PROCEDURES PERFORMED: 1. Laparoscopic gastric bypass. 2. Hiatal hernia repair 3. Extensive lysis of adhesions ANESTHESIA: General endotracheal tube intubation. SPECIMENS: small segment gastric remnant ESTIMATED BLOOD LOSS: Less than 20 mL. FINDINGS: copious intra-abdominal adhesions from previous open colectomy. Large hiatal hernia with proximal stomach found to be with level diaphragm. Friable mesenteric tissue. COMPLICATIONS: None. INDICATION: Ms. Aguilar is a 65-year-old female with history of morbid obesity, and obesity related co-morbidities. She presented today for gastric bypass. She signed informed consent and expressed understanding of risks and benefits. DESCRIPTION OF PROCEDURE: Patient was brought to the OR suite, laid in supine position. Bilateral lower extremity SCDs were placed. General anesthesia was induced via successful endotracheal tube intubation. Patient's abdomen was prepped and draped in sterile fashion. A veress needle was used to insuflate the abdomen to a pressure of 15mmHg via a stab incision in the left sub costal Using Optiview technique, a 5-mm trocar was placed into the abdominal cavity under direct vision. There was noted to be no gross injury to any intraabdominal structures. There was noted to be extensive adhesions of omentum and colon starting left of midline crossing across obscuring the right side of the abdominal cavity. This was from previous open cholecystectomy. A 5mm port was placed in the left lateral abdomen under direct visualization. Using an Enseal device it took approximately 45 minutes to carefully release the omental and bowel adhesions from the anterior abdominal wall in order to visualize the entire abdominal cavity. After this 3 additional working trocars were placed under direct visualization, 12 mm in the right mid abdomen mid clavicular line and two 5-mm trocars in the right upper quadrant and epigastric areas. At this time, the ligament of Treitz identified and followed down approximately 75 cm and the jejunum was transected, after the omentum was split with the Harmonic scalpel . At this time, the patient was placed in steep reverse Trendelenburg position. A liver retractor was placed through the epigastric port to elevate the left lateral lobe of the liver. It was observed that approximately 5 to 6 cm of proximal stomach had herniated above the level of the diaphragm. The hiatal hernia sac was dissected and from the left and right crura 360 degrees around releasing the stomach and esophagus until approximately 2 cm of esophagus was resting without tension inside the abdominal cavity. A [place] drain was placed at the GE junction to better facilitate visualization and dissection of the posterior crura. Using Surgidac suture, a posterior cruroplasty was performed. A small gastric pouch was formed measuring about 4cm from the hiatus with serial firings of the blue staple load. There was noted to be a thin, floppy segment of remnant stomach that looked at risk of poor vascularization since many of its medial vascular attachments had to be transected for the crural dissection. The segment measured approximately 2 to 3 cm in length and 1.5 to 2 cm in width. It was transected from the gastric remnant at the level of the cardia and removed from the abdominal cavity and sent for specimen. The distal segment of jejunum was then traced for approximately 100 cm and a stapled lowy-ch-lnar jejunojejunostomy was performed. The common enterotomy was closed with 2 firings of the endoscopic stapler. The mesenteric defect was closed with interrupted Surgidac suture. Patient's mesentery was noted to be very soft and friable. This anastomosis was found to be patent without kink, obstruction or bleeding. The Petra limb was then brought in an antegastric antecolic fashion and secured with 2 stay sutures to the gastric pouch. After this, the enterotomies were made with Harmonic scalpel, and a [id number] stapled gastrojejunostomy was performed with a mechanical stapler. With a common anastamosis measuring about 20mm. After this, a 2-layer running closure using absorbable v-loc suture was done. The first being mucosal approximation. Prior to completion of the first layer, I passed an EGD scope beyond the anastomosis to act as a stent. The first layer was completed, the second was then performed. After this, the EGD was retracted slightly. A bowel clamp was placed on the proximal Petra limb. The anastomosis was submerged under saline. Via intraluminal EGD insufflation, there was noted be no bubbles in the saline indicating an air tight anastomosis. There was noted to be no obstruction or bleeding intraluminally in the pouch or the anastomosis. At this time, the scope was removed. The saline was aspirated. Vistaseal was placed over the anastomosis. A TAP block was performed using a total of 60 mL 0.25% Marcaine along bilateral mid axillary lines starting at the subcostal margin at the level of the umbilicus. All trocars were removed under direct visualization and the abdomen was then desufflated. The 12mm trocars were closed at the fascial layer with #1 PDS using a suture passer device. The skin incisions were closed with 4-0 Monocryl followed by Dermabond dressings. Patient was awoken and taken to recovery in stable condition. All counts were correct.
[2021-12-03] MEDS: PANTOPRAZOLE 40 MG INJ IV SCH (14:00)
--- NOTE | 2021-12-03 14:04 | Post Anesthesia Evaluation ---
- Post Anesthesia Evaluation Patient Participated: Yes Airway Patent: Yes Stable Respiratory Function: Yes Nausea/Vomiting: No Temp > 96.8F: Yes Pain Manageable: Yes Adequeate Hydration: Yes Anesthesia Complications: No
[2021-12-03] MEDS: ceFAZolin/NS 1 GM/50 ML 1 GM/50 ML BAG IV SCH (17:21)
[2021-12-03] MEDS: metroNIDAZOLE/NS 500 MG/100 ML 500 MG/100 ML BAG IV SCH (18:21)
[2021-12-03] MEDS: LACTATED RINGERS 1,000 ML IV SCH (18:22)
[2021-12-03] MEDS: KETOROLAC 30 MG/1 ML INJ IV SCH (18:22)
[2021-12-04] MEDS: KETOROLAC 30 MG/1 ML INJ IV SCH ×4 (00:21→19:14)
[2021-12-04] MEDS: ceFAZolin/NS 1 GM/50 ML 1 GM/50 ML BAG IV SCH (00:22)
[2021-12-04] MEDS: metroNIDAZOLE/NS 500 MG/100 ML 500 MG/100 ML BAG IV SCH ×2 (02:21→12:00)
[2021-12-04] MEDS: ACETAMINOPHEN IV 1,000 MG/100 ML BOTTLE IV SCH ×2 (02:22→10:37)
[2021-12-04] MEDS: LACTATED RINGERS 1,000 ML IV SCH ×2 (05:59→14:13)
[2021-12-04] MEDS ORDERED: NON-FORMULARY EACH (Losartan [Cozaar] 100 MG Tablet) PO SCH (10:00)
[2021-12-04] MEDS ORDERED: NON-FORMULARY EACH (Anastrozole [Arimidex] 1 MG Tablet) PO SCH (10:00)
[2021-12-04 10:05] LABS: Basophils % (Auto) 0.2 % (0.0-1.8); Eosinophils % (Auto) 0.2 % (0.0-4.3); Hematocrit 34.8 % (30.3-42.9); Hemoglobin 11.1 gm/dl (10.1-14.3); Lymphocytes # (Auto) 0.6 K/mm3 (1.2-5.4); Lymphocytes % (Auto) 6.2 % (13.4-35.0); Mean Corpuscular HGB Conc 32 % (30-34); Mean Corpuscular Volume 87 fl (79-97); Monocytes # (Auto) 0.6 K/mm3 (0.0-0.8); Monocytes % (Auto) 6.5 % (0.0-7.3); Platelet Count 281 K/mm3 (140-440); Red Blood Count 4.02 M/mm3 (3.65-5.03); Red Cell Distribution Width 14.4 % (13.2-15.2)
[2021-12-04 10:21] LABS: Albumin 3.7 g/dL (3.9-5); Calcium 9.2 mg/dL (8.4-10.2)
[2021-12-04] MEDS: hydrALAZINE 25 MG TAB PO SCH ×2 (10:38→21:31)
[2021-12-04] MEDS: LOSARTAN 50 MG TAB PO SCH (10:38)
[2021-12-04] MEDS: ENOXAPARIN 40 MG/0.4 ML INJ SUB-Q SCH (10:42)
[2021-12-04] MEDS: atenoloL 50 MG TAB PO SCH (10:42)
[2021-12-04] MEDS: PANTOPRAZOLE 40 MG INJ IV SCH (10:42)
[2021-12-04] MEDS ORDERED: SODIUM CHLORIDE 0.9% 500 ML 500 ML IV NR (10:55)
--- NOTE | 2021-12-04 12:54 | Progress Note ---
Assessment and Plan Postop day #1 status post laparoscopic gastric bypass. Afebrile and stable with slightly elevated creatinine. We will like to keep the patient initial 24 hours to make sure she is drinking independently enough as she is at a high chance of getting dehydrated upon discharge. We will recheck labs in the morning. Patient encouraged to continue frequent ambulation and small sips. Subjective Date of service: 12/04/21 Narrative: No acute events overnight. Patient denies any abdominal pain nausea vomiting. She is slowly sipping on fluids with minimal discomfort. She is ambulating with adequate pain control. Objective Vital Signs - 12hr 12/04/21 12/04/21 12/04/21 03:10 05:59 07:23 Temperature 97.2 F L Pulse Rate 61 60 Respiratory 16 Rate Blood Pressure 139/77 125/72 O2 Sat by Pulse 100 97 98 Oximetry 12/04/21 12/04/21 12/04/21 09:42 10:41 10:42 Temperature 97.5 F L Pulse Rate 58 L Respiratory Rate Blood Pressure 135/67 135/67 O2 Sat by Pulse 99 99 Oximetry - General physical appearance well developed, no distress, no pain, obese - Respiratory normal expansion, normal respiratory effort - Abdomen soft, not tender, other (incisions c/d/i) - Labs 12/04/21 09:46 12/04/21 09:39 Diabetes panel 12/04/21 Range/Units 09:39 Sodium 140 (137-145) mmol/L Potassium 4.5 (3.6-5.0) mmol/L Chloride 107.1 H (98-107) mmol/L Carbon Dioxide 21 L (22-30) mmol/L BUN 23 H (7-17) mg/dL Creatinine 1.3 H (0.6-1.2) mg/dL Glucose 97 (65-100) mg/dL Calcium 9.2 (8.4-10.2) mg/dL AST 27 (5-40) units/L ALT 17 (7-56) units/L Alkaline Phosphatase 95 (35-129) units/L Total Protein 7.0 (6.3-8.2) g/dL Albumin 3.7 L (3.9-5) g/dL Calcium panel 12/04/21 Range/Units 09:39 Calcium 9.2 (8.4-10.2) mg/dL Albumin 3.7 L (3.9-5) g/dL Pituitary panel 12/04/21 Range/Units 09:39 Sodium 140 (137-145) mmol/L Potassium 4.5 (3.6-5.0) mmol/L Chloride 107.1 H (98-107) mmol/L Carbon Dioxide 21 L (22-30) mmol/L BUN 23 H (7-17) mg/dL Creatinine 1.3 H (0.6-1.2) mg/dL Glucose 97 (65-100) mg/dL Calcium 9.2 (8.4-10.2) mg/dL Adrenal panel 12/04/21 Range/Units 09:39 Sodium 140 (137-145) mmol/L Potassium 4.5 (3.6-5.0) mmol/L Chloride 107.1 H (98-107) mmol/L Carbon Dioxide 21 L (22-30) mmol/L BUN 23 H (7-17) mg/dL Creatinine 1.3 H (0.6-1.2) mg/dL Glucose 97 (65-100) mg/dL Calcium 9.2 (8.4-10.2) mg/dL Total Bilirubin 0.20 (0.1-1.2) mg/dL AST 27 (5-40) units/L ALT 17 (7-56) units/L Alkaline Phosphatase 95 (35-129) units/L Total Protein 7.0 (6.3-8.2) g/dL Albumin 3.7 L (3.9-5) g/dL
[2021-12-05] MEDS: KETOROLAC 30 MG/1 ML INJ IV SCH ×3 (00:54→12:36)
[2021-12-05] MEDS: LACTATED RINGERS 1,000 ML IV SCH (04:28)
[2021-12-05 05:12] LABS: Basophils # (Auto) 0.1 K/mm3 (0.0-0.1); Basophils % (Auto) 0.9 % (0.0-1.8); Eosinophils # (Auto) 0.2 K/mm3 (0.0-0.4); Eosinophils % (Auto) 3.2 % (0.0-4.3); Hematocrit 31.4 % (30.3-42.9); Hemoglobin 10.4 gm/dl (10.1-14.3); Lymphocytes # (Auto) 0.9 K/mm3 (1.2-5.4); Lymphocytes % (Auto) 14.4 % (13.4-35.0); Mean Corpuscular HGB Conc 33 % (30-34); Mean Corpuscular Volume 85 fl (79-97); Monocytes # (Auto) 0.4 K/mm3 (0.0-0.8); Monocytes % (Auto) 6.6 % (0.0-7.3); Platelet Count 237 K/mm3 (140-440); Red Blood Count 3.72 M/mm3 (3.65-5.03); Red Cell Distribution Width 14.4 % (13.2-15.2)
[2021-12-05 05:32] LABS: Alanine Aminotransferase 11 units/L (7-56); Albumin 3.3 g/dL (3.9-5); BUN/Creatinine Ratio 21; Blood Urea Nitrogen 23 mg/dL (7-17); Calcium 8.7 mg/dL (8.4-10.2); Hemolysis Index 12
[2021-12-05] MEDS: hydrALAZINE 25 MG TAB PO SCH (12:35)
[2021-12-05] MEDS: LOSARTAN 50 MG TAB PO SCH (12:36)
[2021-12-05] MEDS: atenoloL 50 MG TAB PO SCH (12:36)
[2021-12-05] MEDS: PANTOPRAZOLE 40 MG INJ IV SCH (12:36)
[2021-12-05] MEDS: ENOXAPARIN 40 MG/0.4 ML INJ SUB-Q SCH (12:37)
[2021-12-05 15:20] VITALS: BP 125/63
--- NOTE | 2021-12-05 17:04 | Discharge Summary ---
Providers - Providers Date of Admission: 12/03/21 05:58 Date of discharge: 12/05/21 Attending physician: JUSTIN LUO MD 12/03/21 13:05 Physical Therapy Evaluation and Treat [CONS] Routine Comment: Reason For Exam: s/p bariatric surgery Primary care physician: NATHAN ROMO Hospitalization Reason for admission: s/p bariatric surgery Condition: Good Procedures: lap gastric bypass, hiatal hernia, extensive lysis of adhesions Hospital course: Patient had an uncomplicated bariatric procedure. Patient progressed well on the floor she was slow to oral intake but by postop day 2 was tolerating at least 30 ounces of fluid fairly easily. Her pain was controlled and she was ambulating well. Patient maintained normal vital signs and was afebrile. Patient was discharged on postop day #2 showing no gross clinical signs of leak or bleeding. Patient will follow-up in the office in 2 weeks. Disposition: 01 HOME / SELF CARE / HOMELESS Final Discharge Diagnosis (Prints w/discharge instructions): morbid obesity, htn, hiatal hernia s/p repair Core Measure Documentation - Palliative Care Palliative Care/ Comfort Measures: Not Applicable - Core Measures Any of the following diagnoses?: none Exam - Constitutional Vitals: Temp Pulse Resp BP Pulse Ox 97.7 F 61 16 125/63 98 12/05/21 15:19 12/05/21 15:19 12/05/21 15:19 12/05/21 15:19 12/05/21 16:22 General appearance: Present: no acute distress, obese - EENT Eyes: Present: PERRL ENT: hearing intact - Respiratory Respiratory effort: normal - Extremities Extremities: no ischemia - Abdominal General gastrointestinal: Present: soft, non-tender, other (incisions c/d/i) Plan Activity: advance as tolerated Diet: clear liquids Wound: open to air, keep clean and dry Follow up with: NATHAN ROMO MD [Primary Care Provider] - 7 Days
[2021-12-10] MEDS ORDERED: metroNIDAZOLE/NS 500 MG/100 ML 500 MG/100 ML BAG IV NR (06:00)
[2021-12-10] MEDS ORDERED: ENOXAPARIN 40 MG/0.4 ML INJ SUB-Q NR (06:00)
== END 2021-12-05 19:31 | disposition home health service (06) | DRG 621 ==
LOC: 3A 05:58 → 4A 08:59
PROVIDERS: ADMIT Surgery; ATTEND Surgery
PROC: 0D164ZA Bypass Stomach to Jejunum, Percutaneous Endoscopic Approach (ICD-10-PCS; principal; 2021-12-03)
PROC: 0BQT4ZZ Repair Diaphragm, Percutaneous Endoscopic Approach (ICD-10-PCS; 2021-12-03)
PROC: 0DNW4ZZ Release Peritoneum, Percutaneous Endoscopic Approach (ICD-10-PCS; 2021-12-03)
PROC: 0DJ08ZZ Inspection of Upper Intestinal Tract, Via Natural or Artificial Opening Endoscopic (ICD-10-PCS; 2021-12-03)
PROC: 0DQ50ZZ Repair Esophagus, Open Approach (ICD-10-PCS; 2021-12-03)
DX: E66.01 Morbid (severe) obesity due to excess calories (principal); Z20.822 Contact with and (suspected) exposure to COVID-19; I10 Essential (primary) hypertension; K21.9 Gastro-esophageal reflux disease without esophagitis; Z85.3 Personal history of malignant neoplasm of breast; K66.0 Peritoneal adhesions (postprocedural) (postinfection); Z68.42 Body mass index [BMI] 45.0-49.9, adult
CPT/HCPCS: 36415; 80053; 82962; 85025; 85027; 88305; 88307; 88342; 94760; G0378; J3490; J7121; J7517; C9113; J0131; J0690; J1100; J1650; J1885; J2250; J2405; J2704; J3010; J3475; J7040; J7120; U0003